=== PATIENT | female | born 2000 | race Two or more races ===

== ENCOUNTER 2023-05-01 11:58 | Observation (INO) | payer MEDICAID ==
[2023-05-01] MEDS ORDERED: PREN1TAB71 OR (12:13)
[2023-05-01 13:39] LABS: Fern Testing Negative
== END 2023-05-01 14:58 | disposition home or self-care (01) ==
LOC: LDRP 11:58
PROVIDERS: ADMIT Obstetrics & Gynecology; ATTEND Obstetrics & Gynecology
DX: O62.9 Abnormality of forces of labor, unspecified (principal); O26.893 Other specified pregnancy related conditions, third trimester; R10.9 Unspecified abdominal pain; Z3A.38 38 weeks gestation of pregnancy
CPT/HCPCS: 59025; 81002; 84112; G0378; Q0114

== ENCOUNTER 2023-05-01 21:00 | Inpatient (IN) | payer MEDICAID ==
[~2023-05-01] VITALS: Ht 165.1 cm; Wt 65.8 kg
[~2023-05-01 21:00] MED LIST: PREN1TAB71 OR
[2023-05-01] MEDS ORDERED: BUTORPHANOL TARTRATE 2 MG/1 ML VIAL IV PRN (22:00)
[2023-05-01 22:04] LABS: Fern Testing Positive
[2023-05-01 22:42] LABS: Basophils # (auto) 0.1 10 ^3/uL (0-0.2); Basophils % (auto) 0.5 % (0.0-2.0); Eosinophils # (auto) 0 10 ^3/uL (0-0.8); Eosinophils % (auto) 0.3 % (0.0-7.0); Hematocrit 39.2 % (36.0-46.0); Lymphocytes % (auto) 19.1 % (10.0-50.0); Mean Corpuscular Hemoglobin 30.1 pg (28.0-32.0); Mean Corpuscular Hgb Conc. 33.3 g/dL (32.0-36.0); Mean Corpuscular Volume 90.5 fL (80.0-100.0); Monocytes # (auto) 0.8 10 ^3/uL (0-1.3); Monocytes % (auto) 5.3 % (0.0-12.0); Neutrophils # (auto) 11.8 10 ^3/uL (1.6-8.6); Neutrophils % (auto) 74.8 % (37.0-80.0); Red Blood Cells 4.33 10^6/uL (4.0-5.20); Red Cell Distribution Width 13.3 % (11.8-14.3); White Blood Cell 15.8 10^3/uL (4.4-10.8)
[2023-05-01] MEDS: BUTORPHANOL TARTRATE 2 MG/1 ML VIAL IV PRN (22:51)
[2023-05-01] MEDS: PROMETHAZINE HCL 25 MG/ML 1ML IV PRN (22:52)
[2023-05-01] MEDS: PHISODERM TOP SOLN 240ML BTL TOP PRN (22:53)
[2023-05-01] MEDS: WITCH HAZEL-GLYCERIN PAD TOP PRN (22:53)
[2023-05-01] MEDS: DERMOPLAST 60ML BOTTLE TOP PRN (22:53)
[2023-05-01 23:01] LABS: Alanine Aminotransferase 10 U/L (7-40); Albumin 4.3 g/dL (3.2-4.8); Alkaline Phosphatase 217 U/L (46-116); Anion Gap 9 (5-15); Aspartate Aminotransferase 20 U/L (13-40); BUN/Creatinine Ratio 15.8 (10.0-20.0); Blood Urea Nitrogen 9 mg/dL (9-23); Calcium 9.3 mg/dL (8.7-10.4); Carbon Dioxide 22 mmol/L (20-30); Chloride 106 mmol/L (98-107); Glucose 88 mg/dL (74-106); INR 0.9 (0.9-1.15); Potassium 3.3 mmol/L (3.5-5.1); Prothrombin Time 9.5 sec (9.3-11.8); Sodium 137 mmol/L (136-145)
[2023-05-01 23:02] LABS: Bilirubin, Total 0.4 mg/dL (0.2-1.0); Total Protein 7.2 g/dL (5.7-8.2)
[2023-05-01] MEDS: ePHEDrine SULFATE 50 MG/ML AMP IV ONE (23:15)
[2023-05-01] MEDS: LACTATED RINGER'S 1,000 ML IV ONE (23:17)
[2023-05-01] MEDS: LACTATED RINGER'S 1,000 ML IV SCH (23:44)
[2023-05-02] VITALS (8 sets, daily range): BP systolic 119–135; BP diastolic 63–86; PULSE 78–87; RESP 15–20; TEMP 97.8–99; O2SAT 98
[2023-05-02 00:29] LABS: Urine Bacteria FEW /hpf (None Seen); Urine Blood 2+ /uL (Negative); Urine Clarity Clear (Clear); Urine Color Colorless (Yellow); Urine Mucus FEW (None Seen); Urine Protein, UAD 1+ (Negative); Urine Specific Gravity 1.017 (1.001-1.035); Urine Urobilinogen Normal (Negative); Urine WBC 1 /hpf (0 - 5)
[2023-05-02 00:31] LABS: Amphetamine Screen, Urine Neg (NEGATIVE); Barbiturate Scree,Urine Neg (NEGATIVE); Benzodiazephine Screen, Urine Neg (NEGATIVE); Cannabinoid Screen, Urine Neg (NEGATIVE); Cocaine Screen, Urine Neg (NEGATIVE); Opiate Scree,Urine Neg (NEGATIVE); Phencyclidine Screen, Urine Neg (NEGATIVE)
[2023-05-02] MEDS: METHYLERGONOVINE MALEATE 0.2 MG/ML AMP IM ONE (02:29)
[2023-05-02] MEDS: LIDOCAINE 2%HCL (LOCAL ANESTH.) INJ 20ML MDV IJ PRN (02:40)
[2023-05-02] MEDS: LACT. RINGERS/OXYTOCIN 20UNITS 1,000 ML IV ONE ×2 (02:42→02:55)
[2023-05-02] MEDS ORDERED: ONDANSETRON ODT 4 MG TAB PO PRN (04:00)
[2023-05-02] MEDS: IBUPROFEN 600 MG TAB PO PRN (05:47)
[2023-05-02] MEDS: ROPIVACAINE HCL 100 ML ONE (05:49)
[2023-05-02] MEDS: POTASSIUM CHL 20 Meq TABLET PO ONE (08:47)
[2023-05-02] MEDS: ACETAMINOPHEN 325 MG TAB PO PRN (11:19)
[2023-05-02] MEDS: DOCUSATE SOD 100 MG CAP PO SCH (22:00)
[2023-05-03 03:00] VITALS: RESP 20
[2023-05-03 07:00] VITALS: BP 129/77; PULSE 80; RESP 16; TEMP 98.2; O2SAT 97
[2023-05-03 10:33] VITALS: BP 122/75; PULSE 75; RESP 16; TEMP 98; O2SAT 97
[2023-05-04 08:07] LABS: RPR Non Reactive (Non Reactive)
[2023-05-05 19:06] LABS: Treponema pallidum Ab (FTA-Ab) Non Reactive (Non Reactive)
== END 2023-05-03 10:44 | disposition home or self-care (01) | DRG 560 ==
LOC: LDRP 21:00 → OBSVTOIN 21:00 → INTOOBSV 21:00 → UNDOADMOB 21:00 → OBSVTOIN 21:58 → LDRP 21:58
PROVIDERS: ADMIT Obstetrics & Gynecology; ATTEND Obstetrics & Gynecology
PROC: 10E0XZZ Delivery of Products of Conception, External Approach (ICD-10-PCS; principal; 2023-05-02)
PROC: 0KQM0ZZ Repair Perineum Muscle, Open Approach (ICD-10-PCS; 2023-05-02)
PROC: 3E0R3BZ Introduction of Anesthetic Agent into Spinal Canal, Percutaneous Approach (ICD-10-PCS; 2023-05-02)
PROC: 00HU33Z Insertion of Infusion Device into Spinal Canal, Percutaneous Approach (ICD-10-PCS; 2023-05-02)
DX: O70.1 Second degree perineal laceration during delivery (principal); Z37.0 Single live birth; O71.82 Other specified trauma to perineum and vulva; Z88.8 Allergy status to other drugs, medicaments and biological substances; Z3A.38 38 weeks gestation of pregnancy
CPT/HCPCS: 36415; 59025; 59409; 62282; 80053; 80307; 81001; 81002; 84112; 85025; 85610; 85730; 86592; 86850; 86900; 86901; 94760; 94762; 96360; 96361; 96365; 96366; 96372; 96374; 96375; G0378; J2590